=== PATIENT | female | born 1990 | race Caucasian/White ===

== ENCOUNTER 2016-07-26 19:56 | Emergency (ER) | payer OTHER ==
[~2016-07-26] VITALS: Ht 170.2 cm; Wt 68.0 kg
[~2016-07-26 19:56] MED LIST: AUGMENTIN 875-1 EACH PO; BACTRIM DS TAB1 EACH PO; ERYTHROMYCIN E3.5 G1 OPHTHALMIC; IBUPROFEN 600600 M1 PO; NORCO 5-325 TA1 EACH PO
[2016-07-26] MEDS ORDERED: PREDNISONE 20 M20 MG PO (21:52)
[2016-07-26] MEDS ORDERED: IBUPROFEN 600600 M1 PO (21:52)
[2016-07-26] MEDS ORDERED: TIZANIDINE HCL4 MG PO (21:52)
[2016-07-26 21:53] LABS: URINE BILIRUBIN NEGATIVE (Negative); URINE BLOOD TRACE (Negative); URINE COLOR YELLOW; URINE GLUCOSE-RANDOM* NEGATIVE (Negative); URINE KETONES NEGATIVE (Negative); URINE NITRITE NEGATIVE (Negative); URINE PROTEIN (DIPSTICK) NEGATIVE (Negative); URINE SPECIFIC GRAVITY <= 1.005 (1.003-1.035); URINE UROBILINOGEN 0.2 E.U./dl (0.2-1.0)
[2016-07-26 22:04] LABS: BACTERIA 1-9 Few /HPF (None Seen); CASTS None Seen /LPF (None Seen); CRYSTALS None Seen /LPF (None Seen); SQUAMOUS 4-10 Moderate /LPF (0-3); URINE RBC 0-2 Rare /HPF (0-2); URINE WBC 6-15 Few /HPF (0-5)
[2016-07-26 22:38] VITALS: BP 126/85
== END 2016-07-26 22:39 | disposition home or self-care (01) ==
LOC: ER 19:56
PROVIDERS: Nurse Practitioner
DX: M54.16 Radiculopathy, lumbar region (principal); F17.210 Nicotine dependence, cigarettes, uncomplicated; F12.10 Cannabis abuse, uncomplicated; Z90.89 Acquired absence of other organs; Z88.1 Allergy status to other antibiotic agents

== ENCOUNTER 2016-08-13 19:37 | Emergency (ER) | payer OTHER ==
[~2016-08-13] VITALS: Ht 170.2 cm; Wt 68.0 kg
[~2016-08-13 19:37] MED LIST changes: +PREDNISONE 20 M20 MG PO; +TIZANIDINE HCL4 MG PO
[2016-08-13 21:41] VITALS: BP 124/69
[2016-08-14] MEDS ORDERED: CIPRODEX OTIC7.5 ML OTIC (20:12)
== END 2016-08-13 21:44 | disposition home or self-care (01) ==
LOC: ER 19:37
DX: H61.22 Impacted cerumen, left ear (principal); F17.210 Nicotine dependence, cigarettes, uncomplicated; F12.10 Cannabis abuse, uncomplicated; Z98.890 Other specified postprocedural states; Z88.1 Allergy status to other antibiotic agents

== ENCOUNTER 2016-08-14 19:32 | Emergency (ER) | payer OTHER ==
[~2016-08-14] VITALS: Ht 170.2 cm; Wt 68.0 kg
[2016-08-14 19:35] VITALS: BP 156/126
[2016-08-14] MEDS ORDERED: CIPRODEX OTIC7.5 ML OTIC (20:12)
== END 2016-08-14 20:27 | disposition home or self-care (01) ==
LOC: ER 19:32
DX: H61.22 Impacted cerumen, left ear (principal); H60.92 Unspecified otitis externa, left ear; F17.210 Nicotine dependence, cigarettes, uncomplicated; Z98.890 Other specified postprocedural states; Z88.1 Allergy status to other antibiotic agents